=== PATIENT | male | born 1955 | race African-American/Black ===

== ENCOUNTER 2021-07-06 13:07 | Emergency (ER) | payer OTHER ==
[~2021-07-06] VITALS: Ht 190.5 cm; Wt 109.0 kg
[2021-07-06] MEDS ORDERED: ACETAMINOPHEN 325MG TABLET PO STA (15:46)
[2021-07-06] MEDS ORDERED: IBUPROFEN 600MG TABLET PO STA (15:46)
[2021-07-06 16:40] LABS: HEMATOCRIT. 48.2 % (42.0-52.0); HEMOGLOBIN. 16.6 g/dL (14.0-18.0); MEAN PLATELET VOLUME 8.2 fl (7.4-10.4); PLATELET 172 x1000/uL (130-400); RED BLOOD CELL COUNT 5.19 mill/uL (4.7-6.1); RED CELL DISTRIBUTION WIDTH 13.1 % (11.6-14.6)
[2021-07-06 16:45] LABS: CHLORIDE 100 mEq/L (98-107)
[2021-07-06] MEDS ORDERED: TOPUD PO (17:37)
[2021-07-06] MEDS ORDERED: IBUP-2028 MT (17:37)
[2021-07-06] MEDS ORDERED: BENZ-16 MT (17:38)
[2021-07-06 18:22] VITALS: BP 132/105
[2021-07-06 18:46] LABS: PLATELET ESTIMATE NORMAL
== END 2021-07-06 18:29 | disposition home or self-care (01) ==
LOC: ER 13:07
DX: U07.1 COVID-19 (principal); R05.9 Cough, unspecified; F17.200 Nicotine dependence, unspecified, uncomplicated; R07.81 Pleurodynia; Z79.899 Other long term (current) drug therapy
CPT/HCPCS: 36415; 71045; 80053; 85025; 87426; 93005; 99285